=== PATIENT | female | born 1965 | race Caucasian/White ===

== ENCOUNTER 2019-05-01 15:16 | Emergency (ER) | payer BC, OTHER ==
--- NOTE | 2019-05-01 15:39 | ED ---
Hypertension - HPI Summary HPI Summary: A 53 y/o F presents to ED referred by Dr. Sanchez c/o elevated BP onset RESPOOLER. Associated sx: chest pressure, SOLIS aura but not the SOLIS. Aggravating factors: deep breaths. Pt denies any fever, chills, erythema of eyes, blurry vision, sore throat, SOB, cough, abdominal pain, N/V, dysuria, hematuria, myalgia, edema , rash, or dizziness. Flew to [place] in March. - History of Current Complaint Chief Complaint: EDHypertension Stated Complaint: PAIN IN CHEST RISING BP PER PT Time Seen by Provider: 05/01/19 15:30 Hx Obtained From: Patient, Family/Audio Director - , daughter Onset/Duration: Started Hours Ago, Still Present Timing: Constant Aggravating Factor(s): Other: - deep breaths Associated Signs & Symptoms: Other: - pos: chest pressure, SOLIS aura but no SOLIS. neg: fever, chills, erythema of eyes, blurry vision, sore throat, SOB, cough, abdominal pain, N/V, dysuria, hematuria, myalgia, edema, rash, or dizziness. - Allergies/Home Medications Allergies/Adverse Reactions: Allergies Allergy/AdvReac Type Severity Reaction Status Date / Time Penicillins Allergy Unknown Verified 05/01/19 15:20 Reaction Details PMH/Surg Hx/FS Hx/Imm Hx Previously Healthy: No Cardiovascular History: Reports: Hx Hypertension - NO MEDICATION FOR Sensory History: Reports: Hx Contacts or Glasses - GLASSES Denies: Hx Hearing Aid Opthamlomology History: Reports: Hx Contacts or Glasses - GLASSES Neurological History: Reports: Hx Migraine - HX OF NONE RECENTLY - Surgical History Surgery Procedure, Year, and Place: 88-WISDOM TEETH-[facility]. 86-TUBAL- [facility]- Hx Anesthesia Reactions: No Infectious Disease History: No Infectious Disease History: Denies: Traveled Outside the [place] in Last 30 Days - Family History Family History: neg: anaesthesia reaction - Social History Occupation: Unemployed Lives: With Family Alcohol Use: Weekly Alcohol Amount: 2-3 GLASSES PER WEEK Substance Use Type: Reports: None Amount Used/How Often: SOCIALLY X 3-4 YEARS Review of Systems Negative: Fever, Chills Negative: Erythema Negative: Sore Throat Positive: Other - pos: elevated BP, chest pressure. Negative: Chest Pain Negative: Shortness Of Breath, Cough Negative: Abdominal Pain, Vomiting, Nausea Negative: dysuria, hematuria Negative: Myalgia, Edema Negative: Rash Neurological: Other - neg: dizziness Positive: Headache - SOLIS aura but not the SOLIS All Other Systems Reviewed And Are Negative: Yes Physical Exam - Summary Physical Exam Summary: Constitutional: Well-developed, Well-nourished, Alert. (-) Distressed Skin: Warm, Dry HENT: Normocephalic; Atraumatic Eyes: Conjunctiva normal Neck: Musculoskeletal ROM normal neck. (-) JVD, (-) Stridor, (-) Tracheal deviation Cardio: Rhythm regular, rate normal, Heart sounds normal; Intact distal pulses; The pedal pulses are 2+ and symmetric. Radial pulses are 2+ and symmetric. (-) Murmur Pulmonary/Chest wall: Effort normal. (-) Respiratory distress, (-) Wheezes, (-) Rales Abd: Soft, (-) epigastric tenderness, (-) Distension, (-) Guarding, (-) Rebound Musculoskeletal: (-) Edema Lymph: (-) Cervical adenopathy Neuro: Alert, Oriented x3 Psych: Mood and affect Normal Triage Information Reviewed: Yes Vital Signs On Initial Exam: Initial Vitals Temp Pulse Resp BP Pulse Ox 98.0 F 88 16 205/145 98 05/01/19 15:20 05/01/19 15:20 05/01/19 15:20 05/01/19 15:20 05/01/19 15:20 Vital Signs Reviewed: Yes Diagnostics - Vital Signs Vital Signs Temp Pulse Resp BP Pulse Ox 05/01/19 15:20 98.0 F 88 16 205/145 98 - Laboratory Result Diagrams: 05/01/19 15:48 05/01/19 15:48 Lab Statement: Any lab studies that have been ordered have been reviewed, and results considered in the medical decision making process. - Radiology CXR Radiology Interpretation Completed By: Radiologist Summary of Radiographic Findings: IMPRESSION: NO EVIDENCE FOR ACTIVE CARDIOPULMONARY DISEASE. ED provider has reviewed this report. - CT chest/thorax CTA CT Interpretation Completed By: Radiologist Summary of CT Findings: IMPRESSION: No evidence of PE or other acute chest pathology. ED provider has reviewed this report. - EKG 1631 Cardiac Rate: NL - 71 bpm EKG Rhythm: Sinus Rhythm Summary of EKG Findings: no STEMI. Re-Evaluation - Re-Evaluation 1 Re-Evaluation Time: 20:21 Change: Unchanged Comment: Discussing results with patient. Hypertension Course/Dx - Course Course Of Treatment: Patient is a 53 y/o F presenting with elevated BP, chest pressure and SOLIS aura onset RESPOOLER. Pt referred by Dr. Sanchez to r/o PE. Reent traveling includes flying to [place]. Lab work and UA results are without significant abnormality. CXR is negative. Chest/Thorax CTA is negative. Patient given Lopressor in ED. - Diagnoses Provider Diagnoses: Hypertensive urgency, Chest pain, unspecified - Physician Notifications Discussed Care Of Patient With: Gracie Farris - hospitalist Time Discussed With Above Provider: 20:25 Instructed by Provider To: MD Will See In ED Discharge - Discharge Plan Prescriptions: amLODIPine TAB* [Norvasc 5 mg TAB*] 5 mg PO DAILY #7 tab Lisinopril TAB* [Prinivil TAB 10 MG*] 10 mg PO DAILY #7 tab Patient Education Materials: Chest Pain (ED), Hypertension (ED) Referrals: Iván Sanchez MD [Primary Care Provider] - 2 Days Additional Instructions: Return to the ER immediately for any changing or worsening symptoms. - Attestation Statements Document Initiated by Scribe: Yes Documenting Scribe: Amelia Diana Provider For Whom Scribe is Documenting (Include Credential): Dr. Keith Beckett MD Scribe Attestation: I, Amelia Diana, scribed for Dr. Keith Beckett MD on 05/01/19 at 2215. Status of Scribe Document: Viewed
[2019-05-01 16:09] LABS: ABS Basophils 0.1 10^3/ul (0-0.2); ABS Eosinophils 0.1 10^3/ul (0-0.6); ABS Lymphocytes 1.6 10^3/ul (1.0-4.8); ABS Monocytes 0.5 10^3/ul (0-0.8); ABS Neutrophils 3.3 10^3/ul (1.5-7.7); Eosinophil % 1.7 %; Hematocrit 43 % (35-47); Hemoglobin 14.5 g/dL (12.0-16.0); Lymphocyte % 29.1 %; Mean Corpuscular HGB Conc 34 g/dL (31-36); Mean Corpuscular Hemoglobin 30 pg (27-31); Mean Corpuscular Volume 90 fL (80-97); Mean Platelet Volume 7.9 fL (7.4-10.4); Platelet Count 252 10^3/uL (150-450); Red Blood Count 4.83 10^6 /uL (3.70-4.87); Red Cell Distribution Width 14 % (10-15); White Blood Count 5.5 10^3/uL (3.5-10.8)
[2019-05-01 16:29] LABS: Albumin 4.3 g/dL (3.2-5.2); Albumin/Globulin Ratio 1.3 (1-3); BUN/Creatinine Ratio 18.3 (8-20); Calcium 9.6 mg/dL (8.6-10.3); EGFR African American 125.6 (>60); EGFR Non-African American 103.8 (>60); Globulin 3.2 g/dL (2-4); Potassium 4.4 mmol/L (3.5-5.0); Total Bilirubin 0.7 mg/dL (0.2-1.0); Total Protein 7.5 g/dL (6.4-8.9)
[2019-05-01] MEDS ORDERED: Metoprolol Tartrate IV* 1 MG/ML 5 ML VIAL IV ONE (18:05)
[2019-05-01] MEDS ORDERED: Iohexol 350* (CONTRAST) 500 ML MDV IV ONE (18:42)
[2019-05-01 19:26] LABS: Urine Appearance Clear; Urine Bilirubin Negative (Negative); Urine Blood Negative (Negative); Urine Color Yellow; Urine Glucose Negative (Negative); Urine Ketones Trace (Negative); Urine Nitrite Negative (Negative); Urine Protein Negative (Negative); Urine Specific Gravity 1.009 (1.010-1.030); Urine Urobilinogen Negative (Negative)
[2019-05-01] MEDS ORDERED: Metoprolol Tartrate TAB* 50 mg PO ONE (19:46)
[2019-05-01] MEDS ORDERED: Lisinopril TAB* 10 MG PO ONE (22:20)
--- NOTE | 2019-05-01 22:27 | CONSULT ---
Subjective Date of Service: 05/01/19 Interval History: Asked to see patient by EM physician for anti-hypertensive medication recommendations. Pt reports substernal sharp chest pain 3 days prior to presentation that resolved in under 20 minutes. She reports that it was "hard to take a deep breath" but unclear if the pain was pleuritic. Was not exertional or positional. Since then, she has been checking her blood pressures daily at home , with SBP ranging 170 - 200. She went to an appointment in [facility] clinic today, where again her SBP was > 200. Given h/o chest pain, pt was recommended to go to the ER where she had an unremarkable EKG and CT-PE with 2 negative troponins. Patient denies all symptoms now. She reports a stressful past week, and also weight gain (due to "not taking care of herself") over the last several months. She reports needing to take hypertensive medications in the past but not needing them the last 9 years. Family History: Unchanged from Admission - HTN, DM, father with gastric cancer Social History: Unchanged from Admission - smoked as a teenager, 3 drinks/week, works in childcare, lives with Past Medical History: Unchanged from Admission - HTN Review of Systems - Measurements Intake and Output: Intake and Output Last 24 Hours 04/29/19 04/30/19 05/01/19 05/02/19 06:59 06:59 06:59 06:59 Weight 182 lb - Review of Systems Constitutional Symptoms: Positive: Weight Gain Negative: Weight Loss, Weakness, Fatigue, Fever, Night Sweats, Unexplained Falls, Other Eyes: Negative: Normal, Change in Vision, Double Vision, Eye Pain, Glaucoma, Cataract, Contacts or Glasses, Other Thyroid: Negative: Normal, Goiter, Thyroid Nodule, Cold Intolerance, Heat Intolerance , Sweatiness, Tremor, Frequent Defecation, Constipation, Palpitations, Primary Hypothyroidism, Primary Hyperthyroidism, Weight Loss, Weight Gain, Change in Skin/Hair, Change in Menstruation, Radiation Exposure, Other Pulmonary: Negative: Normal, Cough, Sputum, Hemoptysis, Wheezing, Respiratory Distress, Shortness of Breath, COPD, Asthma, Exercise Intolerance, Home Oxygen, Other Cardiology: Negative: Normal, Chest Pain, Shortness of Breath, Palpitations, Swelling of Ankles, Peripheral Vascular Dis, Edema, Faintness, Syncope, Claudication, Proximal NocturnalDyspnea, Orthopnoea, Other Gastroenterology: Negative: Normal, Abdominal Pain, Nausea, Vomiting, Anorexia, Indigestion, Difficulty Swallowing, Heartburn, Constipation, Diarrhea, Blood in Stools, Change in Bowel Habits, Haematemesis, Melena, Other Genital - Urinary: Negative: Normal, Dysuria, Hematuria, Polyuria, Nocturia, Other Musculoskeletal: Negative: Joint Pain, Joint Stiffness, Arthritis, Osteoporosis, Low Back Pain , Sciatica, Joint Deformities, Kyphoscoliosis, Other Endocrinology: Negative: Normal, Thyroid Problems, Adrenal Problems, Gonadal Problems, Family Hx Endocrine Disorders, Obesity, Diabetes Mellitus, Hyperglycemia, Hx Hypoglycemia, Diabetic Foot Ulcers, Calluses, Hirsutism, Menstrual Abnormalities , Polydipsia, Polyuria, Gonadal Problems, Gynecomastia, Pituitary disease, Other Neurology: Negative: Normal, Headache, Migraines, Change in Vision, Diplopia, Dizziness , Change in Balancing, Change in Coordination, Change in Memory, Change in Speech, Change in Sphincter Function, Change in Walking, Numbness\\Paresthesiae, Unexplained Weakness, Hx of Stroke\\TIA, Hx of Seizures, Other Psychiatry: Positive: Anxiety Negative: Normal, Depression, Depressed Mood, Anhedonia, Sexual Dysfunction, Weight Change, Guilt Feelings, Tearfulness, Unusual Fatigue, Unusual Anxiety, Suicidal Ideation, Hypomania, Eating Disorders, Other Objective Active Medications: Lisinopril (Prinivil Tab*) 10 mg PO ED ONCE ONE Stop: 05/01/19 22:21 Vital Signs - 8 hr 05/01/19 05/01/19 05/01/19 15:20 15:53 16:00 Temperature 98.0 F Pulse Rate 88 83 81 Respiratory 16 17 13 Rate Blood Pressure 205/145 182/118 (mmHg) O2 Sat by Pulse 98 94 97 Oximetry 05/01/19 05/01/19 05/01/19 16:23 16:53 17:00 Temperature Pulse Rate 85 85 87 Respiratory 17 20 14 Rate Blood Pressure 146/100 164/102 (mmHg) O2 Sat by Pulse 93 92 95 Oximetry 05/01/19 05/01/19 05/01/19 17:23 17:53 18:00 Temperature Pulse Rate 81 82 85 Respiratory 23 23 14 Rate Blood Pressure 181/103 182/112 (mmHg) O2 Sat by Pulse 94 94 96 Oximetry 05/01/19 05/01/19 05/01/19 18:23 18:47 18:49 Temperature Pulse Rate 87 77 73 Respiratory 17 17 23 Rate Blood Pressure 199/105 191/116 200/109 (mmHg) O2 Sat by Pulse 96 94 94 Oximetry 05/01/19 05/01/19 05/01/19 18:52 18:53 19:09 Temperature Pulse Rate 72 69 78 Respiratory 25 26 5 Rate Blood Pressure 191/105 198/99 (mmHg) O2 Sat by Pulse 94 94 96 Oximetry 05/01/19 19:23 Temperature Pulse Rate 75 Respiratory 17 Rate Blood Pressure 177/97 (mmHg) O2 Sat by Pulse 93 Oximetry Oxygen Devices in Use Now: None Appearance: well appearing, friendly, alert and interactive Ears/Nose/Mouth/Throat: Clear Oropharnyx, Mucous Membranes Moist Neck: NL Appearance and Movements; NL JVP Respiratory: Symmetrical Chest Expansion and Respiratory Effort, Clear to Auscultation Cardiovascular: NL Sounds; No Murmurs; No JVD, RRR Abdominal: NL Sounds; No Tenderness; No Distention Lymphatic: No Cervical Adenopathy Extremities: No Edema Skin: No Rash or Ulcers Neurological: Alert and Oriented x 3, NL Sensation, NL Gait, NL Muscle Strength and Tone Result Diagrams: 05/01/19 15:48 05/01/19 15:48 Assessment/Plan - Billing Plan By Medical Problem: Severe hypertension. - recommend starting amlodipine 5mg and lisinopril 10mg nightly - patient educated on adverse effects and importance of ongoing blood pressure monitoring - discussed proper way to measure BP at home, and to take pressure daily and bring log to PCP - discussed lifestyle changes for BP control: high K diet, exercise, weight loss - recommend getting HgbA1c and lipids checked as outpatient - educated on return precautions, which include but are not limited to chest pain, SOB, diaphoresis, focal weakness Admission Status and Rationale: To be discharged from ED. Case discussed with Dr. Beckett
[2019-05-01 22:31] VITALS: BP 154/94
== END 2019-05-01 22:32 | disposition home or self-care (01) ==
LOC: ED 15:16
DX: I16.0 Hypertensive urgency (principal); R07.9 Chest pain, unspecified; Z88.0 Allergy status to penicillin
CPT/HCPCS: 36415; 71045; 71275; 80053; 81003; 83605; 84484; 85025; 93005; 96374; 99284; A9270-GY; J3490; Q9967